=== PATIENT | female | born 1930 | race Caucasian/White ===

== ENCOUNTER → 2017-08-16 | Day surgery (SDC) | payer MEDICARE ==
[~2017-08-16] VITALS: Ht 152.4 cm; Wt 81.6 kg
[~2017-08-16] MED LIST: ACET650T11 PO; ASPI-264 PO; BACITRACIN INJ 50000 UNIT VIAL ONE; BACITRACIN TOP OINT 1 UD PKG TOP ONE; CALC-315 OR; DOXYCYCLINE 100 MG TAB/CAP PO ONE; FUR40T PO; IOHEXOL 350 MG/ML 100ML IJ ONE; ISOS30TA4 PO; LABETALOL HCL 5 MG/ML 4ML SYRINGE IV ONE; LIDOCAINE 2%HCL (LOCAL ANESTH.) INJ 20ML MDV ONE; LIS10T GT; MAGN400T5 PO; MIDAZOLAM HCL 1MG/1ML-2 ML VIAL ONE; SIMV-8 PO; VANCOMYCIN 1GM/250ML 250 ML IV ONE; VANCOMYCIN HCL 1000 MG VL IR ONE; fentaNYL CITRATE 100 MCG/2 ML VL ONE
== END | disposition home or self-care (01) ==
LOC: CATH 07:33
PROVIDERS: ATTEND Specialist
DX: I49.5 Sick sinus syndrome (principal); Z95.0 Presence of cardiac pacemaker; E66.9 Obesity, unspecified; Z68.35 Body mass index [BMI] 35.0-35.9, adult; Z88.5 Allergy status to narcotic agent; Z88.0 Allergy status to penicillin; Z88.6 Allergy status to analgesic agent; Z88.1 Allergy status to other antibiotic agents; Z88.8 Allergy status to other drugs, medicaments and biological substances; Z88.2 Allergy status to sulfonamides; I48.91 Unspecified atrial fibrillation; I10 Essential (primary) hypertension; I50.9 Heart failure, unspecified; E78.00 Pure hypercholesterolemia, unspecified
CPT/HCPCS: 33228; C1785; J2250; J3010; J3370; J3490; J7030; 99152; 99153

== ENCOUNTER 2019-02-09 22:54 | Inpatient (IN) | payer MEDICARE | END 2019-02-10 20:20 | disposition home health service (06) | LOC: ER 22:54 → TELE 02-10 04:52 → TELE-WESTW 02-10 06:24 | DX: I50.33 Acute on chronic diastolic (congestive) heart failure (principal); I13.0 Hypertensive heart and chronic kidney disease with heart failure and stage 1 through stage 4 chronic kidney disease, or unspecified chronic kidney disease; N18.3 Chronic kidney disease, stage 3 (moderate) ==

== ENCOUNTER 2019-02-11 10:25 | Emergency (ER) | payer MEDICARE ==
[~2019-02-11] VITALS: Ht 157.5 cm; Wt 77.1 kg
[~2019-02-11 10:25] MED LIST changes: -ACET650T11 PO; +ACET650T12 PO; +APIX2.5T OR; -ASPI-264 PO; +ATOR40TA52 PO; -BACITRACIN INJ 50000 UNIT VIAL ONE; -BACITRACIN TOP OINT 1 UD PKG TOP ONE; -DOXYCYCLINE 100 MG TAB/CAP PO ONE; -FUR40T PO; +FURO40TA4 PO; -IOHEXOL 350 MG/ML 100ML IJ ONE; -LABETALOL HCL 5 MG/ML 4ML SYRINGE IV ONE; +LEVO250T19 PO; -LIDOCAINE 2%HCL (LOCAL ANESTH.) INJ 20ML MDV ONE; -LIS10T GT; -MIDAZOLAM HCL 1MG/1ML-2 ML VIAL ONE; +POTA10TA51 PO; -SIMV-8 PO; -VANCOMYCIN 1GM/250ML 250 ML IV ONE; -VANCOMYCIN HCL 1000 MG VL IR ONE; -fentaNYL CITRATE 100 MCG/2 ML VL ONE
[2019-02-11] MEDS ORDERED: SODIUM CHLORIDE 0.9% 1,000 ML IV ONE (11:56)
[2019-02-11 12:25] LABS: Basophils # (auto) 0 uL; Basophils % (auto) 0.4 % (0.0-2.0); Eosinophils # (auto) 0 uL; Eosinophils % (auto) 0.5 % (0.0-7.0); Hematocrit 46.6 % (36.0-46.0); Hemoglobin 15.7 g/dL (12.2-16.2); Lymphocytes # (auto) 0.4 uL; Lymphocytes % (auto) 5.9 % (10.0-50.0); Mean Corpuscular Hemoglobin 32.9 pg (28.0-32.0); Mean Corpuscular Hgb Conc. 33.6 g/dL (32.0-36.0); Mean Corpuscular Volume 97.9 fL (80.0-100.0); Monocytes # (auto) 0.6 uL; Neutrophils # (auto) 5.6 uL; Neutrophils % (auto) 84.2 % (37.0-80.0); Nucleated Red Blood Cells % 0.1 %; Platelet Count (auto) 133 10^3/uL (140-450); Red Blood Cells 4.76 10^6/uL (4.0-5.20); Red Cell Distribution Width 15.5 % (11.8-14.3); White Blood Cell 6.7 10^3/uL (4.4-10.8)
[2019-02-11 12:41] LABS: Calcium 9.1 mg/dL (8.5-10.1); Potassium 3.6 mmol/L (3.5-5.1)
[2019-02-11 12:46] LABS: BUN/Creatinine Ratio 24.8
[2019-02-11 15:14] VITALS: BP 128/73
== END 2019-02-11 15:41 | disposition home or self-care (01) ==
LOC: ER 10:31
DX: E86.0 Dehydration (principal); I48.91 Unspecified atrial fibrillation; I11.0 Hypertensive heart disease with heart failure; I50.9 Heart failure, unspecified; E78.5 Hyperlipidemia, unspecified; Z90.49 Acquired absence of other specified parts of digestive tract; Z95.1 Presence of aortocoronary bypass graft; Z90.89 Acquired absence of other organs; Z79.899 Other long term (current) drug therapy; Z88.6 Allergy status to analgesic agent; Z88.1 Allergy status to other antibiotic agents; Z88.2 Allergy status to sulfonamides; Z91.041 Radiographic dye allergy status
CPT/HCPCS: 36415; 80048; 84484; 85025; 93005; 96360; 96361; 99284; J7030

== ENCOUNTER 2019-06-29 11:31 | Emergency (ER) | payer OTHER ==
[~2019-06-29] VITALS: Ht 160 cm; Wt 73.5 kg
[~2019-06-29 11:31] MED LIST changes: +CIP500T PO; -LEVO250T19 PO; +METO-169 PO
[2019-06-29 11:40] VITALS: BP 104/62
== END 2019-06-29 15:13 | disposition home or self-care (01) ==
LOC: ER 11:31
DX: S46.911A Strain of unspecified muscle, fascia and tendon at shoulder and upper arm level, right arm, initial encounter (principal); I48.91 Unspecified atrial fibrillation; I11.0 Hypertensive heart disease with heart failure; I50.9 Heart failure, unspecified; E78.5 Hyperlipidemia, unspecified; I25.810 Atherosclerosis of coronary artery bypass graft(s) without angina pectoris; Z88.5 Allergy status to narcotic agent; Z88.1 Allergy status to other antibiotic agents; Z88.0 Allergy status to penicillin; Z88.2 Allergy status to sulfonamides; Z88.8 Allergy status to other drugs, medicaments and biological substances; Z79.899 Other long term (current) drug therapy; Z90.49 Acquired absence of other specified parts of digestive tract; Z95.1 Presence of aortocoronary bypass graft; Z95.0 Presence of cardiac pacemaker; W07.XXXA Fall from chair, initial encounter; Y93.89 Activity, other specified; Y99.8 Other external cause status; Y92.89 Other specified places as the place of occurrence of the external cause
CPT/HCPCS: 29105; 73030; 73060; 93005

== ENCOUNTER 2019-11-19 16:02 | Emergency (ER) | payer OTHER ==
[~2019-11-19] VITALS: Ht 157.5 cm; Wt 64.4 kg
[~2019-11-19 16:02] MED LIST changes: -CIP500T PO; +MAGN400T40 PO; -MAGN400T5 PO
[2019-11-19 16:29] VITALS: BP 90/65
== END 2019-11-19 19:56 | disposition left against medical advice (07) ==
LOC: ER 16:02
DX: M79.643 Pain in unspecified hand (principal); Z53.21 Procedure and treatment not carried out due to patient leaving prior to being seen by health care provider

== ENCOUNTER 2019-12-07 19:01 | Inpatient (IN) | payer OTHER ==
[~2019-12-07] VITALS: Ht 160 cm; Wt 65.3 kg
[2019-12-07] MEDS ORDERED: HYDROmorphone HCL 2 MG/ML VL IV ONE (20:30)
[2019-12-07] MEDS ORDERED: ONDANSETRON HCL 4 MG/2 ML VIAL IV ONE (20:30)
[2019-12-07 21:29] LABS: Basophils # (auto) 0 10 ^3/uL (0-0.2); Basophils % (auto) 0.5 % (0.0-2.0); Eosinophils # (auto) 0.1 10 ^3/uL (0-0.8); Hematocrit 43.4 % (36.0-46.0); Hemoglobin 14.7 g/dL (12.2-16.2); Lymphocytes # (auto) 1.9 10 ^3/uL (0.4-5.4); Lymphocytes % (auto) 29.8 % (10.0-50.0); Mean Corpuscular Hemoglobin 33.7 pg (28.0-32.0); Mean Corpuscular Hgb Conc. 33.9 g/dL (32.0-36.0); Mean Corpuscular Volume 99.5 fL (80.0-100.0); Monocytes # (auto) 0.6 10 ^3/uL (0-1.3); Monocytes % (auto) 10.2 % (0.0-12.0); Neutrophils # (auto) 3.6 10 ^3/uL (1.6-8.6); Neutrophils % (auto) 58.5 % (37.0-80.0); Nucleated Red Blood Cells % 0.1 %; Platelet Count (auto) 149 10^3/uL (140-450); Red Blood Cells 4.36 10^6/uL (4.0-5.20); Red Cell Distribution Width 17.2 % (11.8-14.3); White Blood Cell 6.2 10^3/uL (4.4-10.8)
[2019-12-07 21:39] LABS: Albumin 3.2 g/dL (3.4-5.0); Calcium 8.7 mg/dL (8.5-10.1); Magnesium 2.2 mg/dL (1.6-2.6)
[2019-12-07 21:41] LABS: INR 1.11 (0.9-1.15); Partial Thromboplastin Time 27.7 sec (23.64-32.05)
[2019-12-07 21:45] LABS: Bilirubin, Total 0.6 mg/dL (0.2-1.0); Total Protein 6.8 g/dL (6.4-8.2)
[2019-12-08 02:33] LABS: Urine Bacteria NONE SEEN /hpf (None Seen); Urine Blood Negative /uL (Negative); Urine Specific Gravity 1.012 (1.001-1.035); Urine WBC 1 /hpf (0 - 5)
[2019-12-08] MEDS ORDERED: ONDANSETRON HCL 4 MG/2 ML VIAL IV ONE (04:15)
[2019-12-08] MEDS ORDERED: HYDROmorphone HCL 2 MG/ML VL IV ONE (04:15)
[2019-12-08] MEDS ORDERED: NITROGLYCERIN 0.4 MG SL TAB SL PRN (06:45)
[2019-12-08] MEDS ORDERED: ONDANSETRON HCL 4 MG/2 ML VIAL IV PRN (06:45)
[2019-12-08] MEDS ORDERED: TEMAZEPAM 15 MG CAP PO PRN (06:45)
[2019-12-08] MEDS ORDERED: ACETAMINOPHEN 325 MG TAB PO PRN (06:45)
[2019-12-08 09:28] VITALS: BP 116/79
[2019-12-08] MEDS ORDERED: METOPROLOL SUCCINATE XL 50 MG TAB PO SCH (10:00)
[2019-12-08] MEDS: APIXABAN 2.5 MG TAB PO SCH ×2 (10:29→21:16)
[2019-12-08] MEDS: PANTOPRAZOLE 40 MG TAB PO SCH (10:30)
[2019-12-08] MEDS: ISOSORBIDE MONONITRATE ER 60 MG TAB PO SCH (10:30)
[2019-12-08 13:00] VITALS: BP 82/57
[2019-12-08 17:00] VITALS: BP 82/61
[2019-12-08] MEDS ORDERED: FUROSEMIDE 40 MG TAB PO SCH (18:00)
[2019-12-08] MEDS: FUROSEMIDE 20 MG TAB PO SCH (18:00)
[2019-12-08] MEDS: LIDOCAINE 5% TOPICAL PATCH TOP SCH (18:29)
[2019-12-08 20:00] VITALS: BP 92/59
[2019-12-08 22:00] VITALS: BP 92/59
[2019-12-08] MEDS ORDERED: ATORVASTATIN 20 MG TAB PO SCH (22:00)
[2019-12-09 02:01] VITALS: BP 97/54
[2019-12-09 05:00] VITALS: BP 92/62
[2019-12-09] MEDS: FUROSEMIDE 20 MG TAB PO SCH ×2 (06:00→17:19)
[2019-12-09 08:54] VITALS: BP 104/82
[2019-12-09] MEDS ORDERED: LIDO5DIS21 TOP (09:36)
[2019-12-09] MEDS: ISOSORBIDE MONONITRATE ER 60 MG TAB PO SCH (10:00)
[2019-12-09] MEDS ORDERED: METOPROLOL SUCCINATE XL 50 MG TAB PO SCH (10:00)
[2019-12-09 11:13] VITALS: BP 104/82
[2019-12-09] MEDS: APIXABAN 2.5 MG TAB PO SCH (12:11)
[2019-12-09] MEDS: PANTOPRAZOLE 40 MG TAB PO SCH (12:11)
[2019-12-09 13:00] VITALS: BP 93/62
[2019-12-09 17:00] VITALS: BP 107/75
[2019-12-09] MEDS: LIDOCAINE 5% TOPICAL PATCH TOP SCH (17:21)
== END 2019-12-09 18:38 | DRG 563 ==
LOC: ER 19:03 → TELE 19:04 → TELE-EAST 12-08 08:45
PROVIDERS: ADMIT Nurse Practitioner; ATTEND Hospitalist
DX: S39.012A Strain of muscle, fascia and tendon of lower back, initial encounter (principal); I48.20 Chronic atrial fibrillation, unspecified; I42.0 Dilated cardiomyopathy; I13.0 Hypertensive heart and chronic kidney disease with heart failure and stage 1 through stage 4 chronic kidney disease, or unspecified chronic kidney disease; R79.89 Other specified abnormal findings of blood chemistry; N18.3 Chronic kidney disease, stage 3 (moderate); M54.9 Dorsalgia, unspecified; M47.816 Spondylosis without myelopathy or radiculopathy, lumbar region; W01.0XXA Fall on same level from slipping, tripping and stumbling without subsequent striking against object, initial encounter; Y93.89 Activity, other specified; Y92.89 Other specified places as the place of occurrence of the external cause; Y99.8 Other external cause status; I50.9 Heart failure, unspecified; Z88.6 Allergy status to analgesic agent; Z88.3 Allergy status to other anti-infective agents; Z88.0 Allergy status to penicillin; Z88.8 Allergy status to other drugs, medicaments and biological substances
CPT/HCPCS: 36415; 71045; 72131; 80053; 81001; 83605; 83735; 83880; 84484; 85025; 85610; 85730; 87081; 93005; 93306; 96374; 96375; 96376; 97163; G0378; J2405